=== PATIENT | male | born 1985 | race Caucasian/White ===

== ENCOUNTER 2020-10-23 10:22 | Emergency (ER) | payer OTHER, SELFPAY ==
--- NOTE | 2020-10-23 11:31 | RAD REPORT ---
EXAM DESCRIPTION: CT - Head C Spine Mpr Wo Con - 10/23/2020 11:10 am CLINICAL HISTORY: Syncope. Head and neck pain COMPARISON: None. TECHNIQUE: Computed axial tomography of the head and cervical spine was obtained. Sagittal and coronal reconstruction was performed. All CT scans are performed using dose optimization technique as appropriate and may include automated exposure control or mA/KV adjustment according to patient size. FINDINGS: An intracranial bleed is not seen. The ventricles are normal in caliber. An extra-axial fl uid collection is not noted.Fluid within the visualized sinuses and mastoids is not seen A cervical fracture is not visualized. No dislocation is noted. No high-grade stenosis seen IMPRESSION: No acute intracranial abnormality is seen. A cervical fracture is not visualized. If the patient continues to have symptoms to suggest intracra nial /spinal cord/ spinal canal pathology then MRI would be recommended
[2020-10-23 12:30] LABS: Absolute Lymphocytes (CBC) 0.9 K/uL (0.7-4.9); Basophils % 0.4 % (0-1.3); Hematocrit 46.1 % (39.6-49.0); Lymphocytes % 12.9 % (15.3-44.8); MPV 9.4 fL (7.6-11.3); RBC Red Blood Cell Count 5.59 M/uL (4.33-5.43)
[2020-10-23 12:37] LABS: Protime INR 1.12
--- NOTE | 2020-10-23 12:39 | RAD REPORT ---
EXAM DESCRIPTION: RAD - Chest Single View - 10/23/2020 12:32 pm CLINICAL HISTORY: CHEST PAIN Chest pain. COMPARISON: No comparisons FINDINGS: Portable technique limits examination quality. Mild interstitial prominence is present, slightly greater on the left. No focal infiltrate typical of pneumonia seen. The heart is normal in size. No displaced fractures.
[2020-10-23] MEDS ORDERED: ONDANSETRON 4 MG/2 ML VIAL ONE (12:43)
[2020-10-23] MEDS ORDERED: MORPHINE 4 MG/ML SYR ONE (12:43)
[2020-10-23 12:52] LABS: ALT/SGPT 47 U/L (12-78); AST/SGOT 21 U/L (15-37); Albumin 4.2 g/dL (3.4-5.0); Alkaline Phosphatase 61 U/L (45-117); BUN Blood Urea Nitrogen 19 mg/dL (7-18); Bicarbonate 31 mmol/L (21-32); Bilirubin Direct 0.1 mg/dL (0-0.2); Bilirubin Total 0.4 mg/dL (0.2-1.0); Glucose Level 129 mg/dL (74-106); Magnesium 2.4 mg/dL (1.8-2.4); NT PRO-BNP 75 pg/mL (<125); Potassium 4.2 mmol/L (3.5-5.1); Protein, Total 7.6 g/dL (6.4-8.2); Sodium Level 141 mmol/L (136-145); Troponin (Emerg Dept Use Only) < 0.02 ng/mL (0.0-0.045)
--- NOTE | 2020-10-23 13:46 | EDPHYS ---
Physician Documentation [facility] Name: Abdoulaye Howard Age: 35 yrs Sex: Male : 1985 Arrival Date: 10/23/2020 Time: 10:27 Bed 16 Private MD: Raciel Lawton ED Physician Jude Jerome HPI: 10/23 14:24 This 35 yrs old Male presents to ER via Ambulatory with complaints of kb Syncope, Arm Pain, Neck Pain, <24hrs Old, Back Pain, General Weakness. 14:24 The patient has experienced syncope, collapsed. Onset: The symptoms/episode kb began/occurred last night. Duration: This was a single episode. Context: the episode(s) was witnessed, by no one, occurred at home, occurred while the patient was standing, Just prior to the episode the patient experienced severe pain to left shoulder. Associated injury: The patient did not suffer any apparent associated injury. Associated signs and symptoms: The patient has no apparent associated signs or symptoms. Current symptoms: Currently, the patient is not experiencing any symptoms. The patient has not experienced similar symptoms in the past. The patient has not recently seen a physician. Pt reports he has had severe left shoulder/back pain that radiates down back of left arm. States the pain was more severe last night and it caused him to black out. States he felt fine after that, but started to feel like he might pass out again today so he came to get checked. Denies injury or trauma. . Historical: - Allergies: 10:34 No Known Allergies; sv - PMHx: 10:34 None; sv - PSHx: 10:34 R shoulder; sv - Immunization history:: Adult Immunizations up to date. - Social history:: Smoking status: Patient denies any tobacco usage or history of. ROS: 13:42 Constitutional: Negative for fever, chills, and weight loss, Cardiovascular: Negative kb for chest pain, palpitations, and edema, Respiratory: Negative for shortness of breath, cough, wheezing, and pleuritic chest pain, Abdomen/GI: Negative for abdominal pain, nausea, vomiting, diarrhea, and constipation, Skin: Negative for injury, rash, and discoloration. 13:42 MS/extremity: Positive for pain, tenderness, of the posterior aspect of left shoulder. 13:42 Neuro: Positive for syncope, near syncope. Exam: 12:24 Constitutional: This is a well developed, well nourished patient who is awake, alert, kb and in no acute distress. Head/Face: Normocephalic, atraumatic. Chest/axilla: Normal chest wall appearance and motion. Cardiovascular: Regular rate and rhythm with a normal S1 and S2. No gallops, murmurs, or rubs. No pulse deficits. Respiratory: Respirations even and unlabored. No increased work of breathing, no retractions or nasal flaring. Abdomen/GI: Soft, non-tender. No distention Skin: Warm, dry with normal turgor. Normal color. MS/ Extremity: Pulses equal, no cyanosis. Neurovascular intact. Full, normal range of motion. Neuro: Awake and alert, GCS 15, oriented to person, place, time, and situation. Moves all extremities. Normal gait. 12:24 ECG was reviewed by the Attending Physician. Vital Signs: 10:35 BP 132 / 84; Pulse 53; Resp 16; Temp 97.7; Pulse Ox 99% ; Weight 76.2 kg; Height 5 ft. sv 7 in. (170.18 cm); 12:35 BP 124 / 67 Supine; Pulse 55; Resp 15; Pulse Ox 98% ; zb 12:38 BP 130 / 77 Sitting; Pulse 60; Resp 15; Pulse Ox 98% on R/A; zb 12:38 BP 128 / 90 Standing; Pulse 78; Resp 16; Pulse Ox 100% on R/A; zb 13:00 BP 133 / 79; Pulse 98; Resp 16; Pulse Ox 98% on R/A; zb 13:56 BP 146 / 80; Pulse 98; Resp 16; Pulse Ox 98% on R/A; zb 10:35 Body Mass Index 26.31 (76.20 kg, 170.18 cm) sv MDM: 11:50 Patient medically screened. kb 13:43 Data reviewed: vital signs, nurses notes. Data interpreted: Pulse oximetry: on room air kb is 100 %. Interpretation: normal. Counseling: I had a detailed discussion with the patient and/or guardian regarding: the historical points, exam findings, and any diagnostic results supporting the discharge/admit diagnosis, lab results, radiology results, the need for outpatient follow up, a family practitioner, to return to the emergency department if symptoms worsen or persist or if there are any questions or concerns that arise at home. 10/23 10:53 Order name: Glucose, Ancillary Testing; Complete Time: 11:50 EDMS 10/23 11:57 Order name: Basic Metabolic Panel; Complete Time: 12:58 kb 10/23 11:57 Order name: CBC with Diff; Complete Time: 12:38 kb 10/23 11:57 Order name: LFT's; Complete Time: 12:58 kb 10/23 11:57 Order name: Magnesium; Complete Time: 12:58 kb 10/23 11:57 Order name: NT PRO-BNP; Complete Time: 12:58 kb 10/23 10:45 Order name: CT Head C Spine; Complete Time: 11:50 sv 10/23 11:57 Order name: Orthostatics; Complete Time: 12:42 kb 10/23 11:57 Order name: PT-INR; Complete Time: 12:41 kb 10/23 11:57 Order name: Troponin (emerg Dept Use Only); Complete Time: 12:58 kb 10/23 11:57 Order name: XRAY Chest (1 view); Complete Time: 12:41 kb 10/23 11:57 Order name: EKG; Complete Time: 11:58 kb 10/23 11:57 Order name: Cardiac monitoring; Complete Time: 12:27 kb 10/23 11:57 Order name: EKG - Nurse/Tech; Complete Time: 12:27 kb 10/23 11:57 Order name: IV Saline Lock; Complete Time: 12:27 kb 10/23 11:57 Order name: Labs collected and sent; Complete Time: 12:27 kb 10/23 11:57 Order name: O2 Per Protocol; Complete Time: 12:27 kb 10/23 11:57 Order name: O2 Sat Monitoring; Complete Time: 12:27 kb EC:24 Rate is 62 beats/min. Rhythm is regular. QRS E[place]kine is Normal. AK interval is normal at kb 176 msec. QRS interval is normal at 92 msec. QT interval is normal at 384 msec. Administered Medications: 12:42 Drug: morphine 4 mg Route: IVP; Site: right antecubital; zb 13:48 Follow up: Response: No adverse reaction; No change in condition; Pain is decreased; zb RASS: Alert and Calm (0) 12:42 Drug: Zofran (Ondansetron) 4 mg Route: IVP; Site: right antecubital; zb 13:48 Follow up: Response: No adverse reaction zb Disposition: 10/24 08:11 Co-signature as Attending Physician, Jude Jerome MD I agree with the assessment and kdr plan of care. Disposition: 10/23/20 13:45 Discharged to Home. Impression: Syncope and collapse, Radiculopathy, cervical region. - Condition is Stable. - Discharge Instructions: Syncope, [id number], Cervical Radiculopathy, [id number]. - Prescriptions for Cyclobenzaprine 10 mg Oral Tablet - take 1 tablet by ORAL route every 8 hours As needed; 21 tablet. Diclofenac Sodium 75 mg Oral Tablet, Delayed Release (E.C.) - take 1 tablet by ORAL route 2 times per day As needed; 30 tablet. - Medication Reconciliation Form, Thank You Letter, Antibiotic Education, Prescription Opioid Use form. - Follow up: Emergency Department; When: As needed; Reason: Worsening of condition. Follow up: Private Physician; When: 2 - 3 days; Reason: Recheck today's complaints, Continuance of care, Re-evaluation by your physician. Signatures: Dispatcher [employer] EDMS Mony Feliciano, [facility] TECH-Cely Zavala RN RN sv Rittger, Kevin, MD MD kdr Brown, Zipporah, RN RN zb Corrections: (The following items were deleted from the chart) 10/23 13:49 13:45 10/23/2020 13:45 Discharged to Home. Impression: Syncope and collapse. Condition kb is Stable. Forms are Medication Reconciliation Form, Thank You Letter, Antibiotic Education, Prescription Opioid Use. Follow up: Emergency Department; When: As needed; Reason: Worsening of condition. Follow up: Private Physician; When: 2 - 3 days; Reason: Recheck today's complaints, Continuance of care, Re-evaluation by your physician. kb 14:00 13:49 10/23/2020 13:45 Discharged to Home. Impression: Syncope and collapse; zb Radiculopathy, cervical region. Condition is Stable. Discharge Instructions: Syncope, Fpso-gn-Seni, Cervical Radiculopathy, Rlel-zi-Dmyr. Prescriptions for Cyclobenzaprine 10 mg Oral Tablet - take 1 tablet by ORAL route every 8 hours As needed; 21 tablet, Diclofenac Sodium 75 mg Oral Tablet, Delayed Release (E.C.) - take 1 tablet by ORAL route 2 times per day As needed; 30 tablet. and Forms are Medication Reconciliation Form, Thank You Letter, Antibiotic Education, Prescription Opioid Use. Follow up: Emergency Department; When: As needed; Reason: Worsening of condition. Follow up: Private Physician; When: 2 - 3 days; Reason: Recheck today's complaints, Continuance of care, Re-evaluation by your physician. kb
--- NOTE | 2020-10-23 13:46 | ER ---
Nurse's Notes [facility] Name: Abdoulaye Howard Age: 35 yrs Sex: Male : 1985 Arrival Date: 10/23/2020 Time: 10:27 Bed 16 Private MD: Raciel Lawton Diagnosis: Syncope and collapse;Radiculopathy, cervical region Presentation: 10/23 10:32 Chief complaint: Patient states: upper left back pain with radiation to the left sv arm/shoulder/neck, and left arm weakness x 1 day. Last night went to the bathroom and "blacked out for a few seconds". Woke up this morning and got cold and clammy and almost felt like passing out. Coronavirus screen: Client denies travel out of the [place] in the last 14 days. At this time, the client does not indicate any symptoms associated with coronavirus-19. Ebola Screen: No symptoms or risks identified at this time. Risk Assessment: Do you want to hurt yourself or someone else? Patient reports no desire to harm self or others. Care prior to arrival: Medication(s) given: Tylenol #3 taken at 0300. 10:32 Method Of Arrival: Ambulatory sv 10:32 Acuity: HAILE 3 sv 10:35 Initial Sepsis Screen: Does the patient meet any 2 criteria? No. Patient's initial sv sepsis screen is negative. Does the patient have a suspected source of infection? No. Patient's initial sepsis screen is negative. Onset of symptoms was October 22, 2020. Triage Assessment: 10:37 General: Appears in no apparent distress. uncomfortable, well developed, Behavior is sv calm, cooperative, appropriate for age. Pain: Complains of pain in left arm, left shoulder, left neck. Neuro: Level of Consciousness is awake, alert, obeys commands, Oriented to person, place, time, situation, Tierce Filler are weak on left minimally. Moves all extremities. Gait is steady. Respiratory: Respiratory effort is even, unlabored. Historical: - Allergies: 10:34 No Known Allergies; sv - PMHx: 10:34 None; sv - PSHx: 10:34 R shoulder; sv - Immunization history:: Adult Immunizations up to date. - Social history:: Smoking status: Patient denies any tobacco usage or history of. Screenin:40 VAN Screening: Arm Drift: Patient shows no arm weakness. Patient is VAN negative. sv 11:59 Abuse screen: Denies threats or abuse. Nutritional screening: No deficits noted. ll1 Tuberculosis screening: No symptoms or risk factors identified. 13:59 Fall Risk None identified. zb Assessment: 10:42 Reassessment: Received VO from Dr Jerome for a CT head Cspine. sv 11:58 General: Appears in no apparent distress. Behavior is calm, cooperative, appropriate ll1 for age. Pain: Complains of pain in L shoulder/back Pain Quality of pain is described as aching. Neuro: No deficits noted. Neuro: No deficits noted. Level of Consciousness is awake, alert, obeys commands, Oriented to person, place, time, situation, Appropriate for age Tierce Filler are equal bilaterally Moves all extremities. Full function Gait is steady, Speech is normal, Facial symmetry appears normal. Cardiovascular: No deficits noted. Rhythm is regular. Musculoskeletal: Circulation, motion, and sensation intact. Capillary refill < 3 seconds, Range of motion: intact in all extremities, Reports pain in back/L shoulder. 11:58 Neuro: Reports a syncopal episode near syncope event x 2. ll1 12:15 General: Appears in no apparent distress. comfortable, Behavior is calm, cooperative, zb appropriate for age, Denies fever, feeling ill, chills. Pain: Complains of pain in neck, back and left arm Pain currently is 6 out of 10 on a pain scale. Quality of pain is described as aching, sharp. Neuro: Level of Consciousness is awake, alert, obeys commands, Oriented to person, place, time, Tierce Filler are equal bilaterally Moves all extremities. Full function Gait is steady, Speech is normal, Facial symmetry appears normal, Pupils are PERRLA. Cardiovascular: Heart tones S1 S2 present Patient's skin is warm and dry. Rhythm is regular. Respiratory: Airway is patent Respiratory effort is even, unlabored, Respiratory pattern is regular, symmetrical. GI: Abdomen is flat, non-distended. : No signs and/or symptoms were reported regarding the genitourinary system. EENT: No signs and/or symptoms were reported regarding the EENT system. Derm: Skin is intact, is healthy with good turgor, Skin is dry, Skin is normal, Skin temperature is warm. Musculoskeletal: Circulation, motion, and sensation intact. Capillary refill < 3 seconds, in bilateral fingers. Range of motion:. 13:00 Reassessment: Patient appears in no apparent distress at this time. Patient and/or zb family updated on plan of care and expected duration. Pain level reassessed. Patient is alert, oriented x 3, equal unlabored respirations, skin warm/dry/pink. patient awaiting results. 13:30 Reassessment: Patient appears in no apparent distress at this time. Patient and/or zb family updated on plan of care and expected duration. Pain level reassessed. Patient is alert, oriented x 3, equal unlabored respirations, skin warm/dry/pink. ecp at bedside discussing care. 13:59 Reassessment: d/c instructions given. gait steady and even. pt up ad nuvia. zb Vital Signs: 10:35 BP 132 / 84; Pulse 53; Resp 16; Temp 97.7; Pulse Ox 99% ; Weight 76.2 kg; Height 5 ft. sv 7 in. (170.18 cm); 12:35 BP 124 / 67 Supine; Pulse 55; Resp 15; Pulse Ox 98% ; zb 12:38 BP 130 / 77 Sitting; Pulse 60; Resp 15; Pulse Ox 98% on R/A; zb 12:38 BP 128 / 90 Standing; Pulse 78; Resp 16; Pulse Ox 100% on R/A; zb 13:00 BP 133 / 79; Pulse 98; Resp 16; Pulse Ox 98% on R/A; zb 13:56 BP 146 / 80; Pulse 98; Resp 16; Pulse Ox 98% on R/A; zb 10:35 Body Mass Index 26.31 (76.20 kg, 170.18 cm) sv ED Course: 10:27 Patient arrived in ED. am2 10:27 Raciel Lawton MD is Private Physician. am2 10:32 Arm band placed on. sv 10:34 Triage completed. sv 11:10 CT Head C Spine In Process Unspecified. EDMS 11:41 Blade Vela, SAGE is Primary Nurse. ll1 11:49 Mony Feliciano FNP-C [facility]. kb 11:49 Jude Jerome MD is Attending Physician. kb 12:12 EKG done, by ED staff, reviewed by Jude Jerome MD. sv 12:12 Inserted saline lock: 20 gauge in right antecubital area, using aseptic technique. zb Blood collected. 12:32 XRAY Chest (1 view) In Process Unspecified. EDMS 13:54 IV discontinued, intact, bleeding controlled, No redness/swelling at site. Pressure jd3 dressing applied. 13:59 No provider procedures requiring assistance completed. zb 14:00 Patient has correct armband on for positive identification. Pulse ox on. NIBP on. Door zb closed. Noise minimized. Warm blanket given. Administered Medications: 12:42 Drug: morphine 4 mg Route: IVP; Site: right antecubital; zb 13:48 Follow up: Response: No adverse reaction; No change in condition; Pain is decreased; zb RASS: Alert and Calm (0) 12:42 Drug: Zofran (Ondansetron) 4 mg Route: IVP; Site: right antecubital; zb 13:48 Follow up: Response: No adverse reaction zb Outcome: 13:45 Discharge ordered by . kb 13:59 Discharged to home ambulatory. zb 13:59 Condition: stable 13:59 Discharge instructions given to patient, Instructed on discharge instructions, follow up and referral plans. medication usage, Demonstrated understanding of instructions, follow-up care, medications, Prescriptions given X 2. 14:00 Patient left the ED. zb Signatures: Dispatcher [employer] EDMS Mony Feliciano, CUBE CUTTER-C CUBE CUTTER-CkCely Carlson, RN RN Anna Koehler Jonathon, RN RN Blade Carlson RN RN ll1 Brown, Zipporah, RN RN zb Corrections: (The following items were deleted from the chart) 10:43 10:32 Chief complaint: Patient states: upper left back pain with radiation to the left sv arm/shoulder/neck x 1 day. Last night went to the bathroom and "blacked out for a few seconds". Woke up this morning and got cold and clammy and almost felt like passing out. sv
[2020-10-23 14:32] VITALS: TEMP 97.7
[2020-10-23 14:35] VITALS: O2SAT 98
[2020-10-23 14:37] VITALS: BP 146/80
--- NOTE | 2020-10-24 04:33 | EKG ---
Test Date: 2020-10-23 Test Time: 12:12:20 Senior Safety Management Consultant: JATIN MEASUREMENT RESULTS: Intervals: Rate: 62 IA: 176 QRSD: 92 QT: 384 QTc: 389 [place]: P: 53 IA: 176 QRS: 67 T: 44 INTERPRETIVE STATEMENTS: Normal sinus rhythm with sinus arrhythmia Normal ECG No previous ECG available for comparison Electronically Signed On 10-24-20 04:32:18 CDT by George Gonzales
== END 2020-10-23 14:00 | disposition home or self-care (01) ==
LOC: ER 10:22
DX: M54.12 Radiculopathy, cervical region (principal)
CPT/HCPCS: 93005; 85025; 80048; 36415; 83735; 85610; 82947; 80076; 84484; 83880; 70450; 72125; 71045; 96375; 96374; 99284; J2405